=== PATIENT | female | born 1980 | race Asian ===

== ENCOUNTER 2020-07-12 12:25 | Emergency (ER) | payer MEDICAID, OTHER ==
[~2020-07-12] VITALS: Ht 160 cm; Wt 50.9 kg
[2020-07-12 12:32] VITALS: BP 137/80
[2020-07-12] MEDS ORDERED: HYDR28.480 TP (12:37)
--- NOTE | 2020-07-12 12:38 | ED Integumentary General ---
General Chief Complaint: Skin/Wound Problems Stated Complaint: SKIN ITCHING Source: patient, RN/MD, RN notes reviewed Exam Limitations: no limitations History of Present Illness Date Seen by Provider: Jul 12, 2020 Time Seen by Provider: 12:25 Initial Comments This patient is a 39-year-old female that presents to the emergency department for nonspecific skin eruption on her extremities states that it comes up and has clear liquid in it is itchy. States that she has yearly. This nonspecific. Denies fever denies redness. Timing/Duration: week Location: extremities Possible Cause: no cause identified Associated Symptoms: blisters Allergies and Home Medications Patient Home Medication List Home Medication List Reviewed: Yes Review of Systems Review of Systems Constitutional: see HPI EENTM: No see HPI, No no symptoms reported, No ear discharge, No hearing loss, No ear pain, No blurred vision, No double vision, No eye pain, No tearing, No vision loss, No dental problems, No hoarseness, No mouth pain, No mouth swelling, No epistaxis, No nose congestion, No nose pain, No throat pain, No throat swelling, No other Respiratory: No no symptoms reported, No see HPI, No cough, No dyspnea on exertion, No hemoptysis, No orthopnea, No phlegm, No short of breath, No stridor, No wheezing, No other Cardiovascular: No no symptoms reported, No see HPI, No chest pain, No edema, No Hx of Intervention, No palpitations, No syncope, No vascular heart diseas, No other Gastrointestinal: No RUQ, No LUQ, No RLQ, No LLQ, No no symptoms reported, No see HPI, No abdominal pain, No constipation, No diarrhea, No dysphagia, No hematemesis, No heartburn, No jaundice, No loss of appetite, No melena, No nausea, No vomiting, No other Genitourinary: No no symptoms reported, No see HPI, No decreased output, No discharge, No dysuria, No frequency, No hematuria, No hesitancy, No incontinence, No nocturia, No pain, No other Musculoskeletal: No no symptoms reported, No see HPI, No back pain, No gout, No joint pain, No joint swelling, No muscle pain, No muscle stiffness, No muscle cramps, No muscle twitching, No muscle weakness, No neck pain, No other Skin: No no symptoms reported, No see HPI, No change in color, No change in hair/nails, No dryness, No hx of skin cancer, No lesions, No lumps, No pruritus, No rash, No other Psychiatric/Neurological: Denies No Symptoms Reported, Denies See HPI, Denies Anxiety, Denies Depressed, Denies Emotional Problems, Denies Headache, Denies Numbness, Denies Paresthesia, Denies Pre-Existing Deficit, Denies Seizure, Denies Tingling, Denies Tremors, Denies Weakness, Denies Other Endocrine: Denies No Symptoms Reported, Denies See HPI, Denies Excessive Sweating, Denies Flushing, Denies Intolerance to Cold, Denies Intolerance to Heat, Denies Increased Hunger, Denies Increased Thrist, Denies Increased Urine, Denies Unexplained Weight Gain, Denies Unexplaned Weight Loss, Denies Other All Other Systems Reviewed Negative Unless Noted: Yes Past Sqeekfr-Jxjstv-Irlzvy Hx Patient Social History Recent Foreign Travel: No Contact w/Someone Who Travel: No Physical Exam Vital Signs Capillary Refill : General Appearance: WD/WN, no apparent distress Cardiovascular: normal peripheral pulses, regular rate, rhythm, no edema, no gallop, no JVD, no murmur Respiratory: chest non-tender, lungs clear, normal breath sounds, no respiratory distress, no accessory muscle use Gastrointestinal: normal bowel sounds, non tender, soft, no organomegaly, no pulsatile mass Skin: normal color, warm/dry, other (small random fluid flailed blisters patient describes as itchy from bilateral extremities.) Progress/Results/Core Measures Progress Progress Note : Time: 12:35 Progress Note Dyshidrosis is a skin condition that causes small, fluid-filled blisters to form on the palms of the hands and sides of the fingers. Sometimes the bottoms of the feet are affected too. The blisters that occur in dyshidrosis generally last around three weeks and cause intense itching.Avoid scratching the rash because doing so can make it worse and could lead to infection. Apply an grek-blf-kztxgmd hydrocortisone cream to the affected area if the rash is very itchy and causing discomfort. Calamine lotion can also help Departure Impression Primary Impression: Dyshidrosis Disposition: 01 HOME, SELF-CARE Condition: Stable Departure-Patient Inst. Decision time for Depature: 12:36 Referrals: NO,LOCAL PHYSICIAN (PCP) Primary Care Physician Patient Instructions: Skin Rash (DC) Add. Discharge Instructions: Dyshidrosis is a skin condition that causes small, fluid-filled blisters to form on the palms of the hands and sides of the fingers. Sometimes the bottoms of the feet are affected too. The blisters that occur in dyshidrosis generally last around three weeks and cause intense itching.Avoid scratching the rash because doing so can make it worse and could lead to infection. Apply an jhdv-wad-cmakzwo hydrocortisone cream to the affected area if the rash is very itchy and causing discomfort. Calamine lotion can also help All discharge instructions reviewed with patient and/or family. Voiced understanding. Scripts Hydrocortisone/Aloe Vera (Hydrocortisone Plus 1% Cream) 28.4 Gm Cream..g. 28.4 GM TP BID, #1 TUBE 0 Refills Prov: IVONE QUIROGA MD 07/12/20 IVONE QUIROGA MD Jul 12, 2020 12:38
== END 2020-07-12 12:45 | disposition home or self-care (01) ==
LOC: ER FS 12:28
DX: L30.1 Dyshidrosis [pompholyx] (principal)
CPT/HCPCS: 99282